=== PATIENT | male | born 1990 | race Caucasian/White ===

== ENCOUNTER 2022-02-09 08:28 | Emergency (ER) | payer SELFPAY ==
[2022-02-09 08:38] VITALS: BP 122/65; PULSE 85; RESP 16; TEMP 36.8; O2SAT 98
--- NOTE | 2022-02-09 09:11 | ED.GENADUL_ITS ---
Discharge Plan Disposition Patient Disposition: Home Condition: Stable Discharge Details Clinical Impression: Flu-like symptoms Primary Care Provider: Jennifer Parmar ED Provider: Varsha Power Home Meds and New Rx's Prescriptions: New albuterol sulfate [Proventil HFA] 90 mcg/actuation HFA aerosol inhaler 2 puff inhalation Q6H PRNQty: 6.7 0RF Discharge Instructions Additional Instructions: Take ibuprofen 600 mg every 8 hours with food Tylenol 650 mg every 4-6 hours Keep yourself hydrated You may use the albuterol inhaler, 2 puffs every 4-6 hours as needed for cough, wheeze, shortness of breath Return should you have new or worsening complaints Refer to enclosed packet information for suggestions Stand Alone Forms: Work Release Discharge Data Discharge Date/Time-TO BE ENTERED AT DEPARTURE: 02/09/22 09:44 Medical Decision Making This 31-year-old male presents with mild sweats, muscle pains, shortness of breath, and cough with runny nose for the past 2 days. Family sick with similar symptoms per patient. Patient with flulike syndrome No hypoxia, vital stable Supportive treatment recommended Return precautions reviewed and patient expressed understanding Medical Records Medical records reviewed: Yes I reviewed the patient's medical records. HPI General Date/Time Provider Initiated Documentation: 02/09/22 08:43 . HPI Narrative: This 31-year-old male presents with report of night sweats, muscle pain, shortness of breath, fatigue x2 days. Cough. Family sick with similar symptoms. Related Data Home Medications Medication Instructions Recorded Confirmed albuterol sulfate 90 mcg/actuation 2 puff inhalation Q6H PRN #6.7 02/09/22 aerosol inhaler (Proventil HFA) grams Previous Rx's Medication Instructions Recorded albuterol sulfate 90 mcg/actuation 2 puff inhalation Q6H PRN #6.7 02/09/22 aerosol inhaler (Proventil HFA) grams Allergies Allergy/AdvReac Type Severity Reaction Status Date / Time diphenhydramine Allergy Intermediate Hives Verified 02/09/22 08:41 [From Benadryl] General Stated Complaint: [facility] ESTEFANÍA: 4 Review of Systems All systems reviewed & are unremarkable except as noted in HPI and below PFSH All Active Problems (Updated 02/09/22 @ 09:15 by BRYAN Clemente) Flu-like symptoms (Acute) Bipolar 1 disorder (Acute) Family History (Updated 12/29/21 @ 16:21 by Gabby Botello) Mother Depression Father Depression Stroke Sister Depression Sister Depression Sister , 19 Depression Brother No problems noted. Son No problems noted. Son No problems noted. Social History (Updated 01/11/22 @ 12:23 by Joan Velázquez) Smoking/Tobacco Use Status: Current every day Tobacco Type: cigarettes Tobacco: How many years used: 8 Quit status: considering quitting Second Hand Exposure: Yes Smoking risk assessment performed?: Yes Alcohol Intake: current Alcohol Intake frequency: a few times a week Alcohol type: beer Drug use: Daily Substance use type: marijuana Household members: significant other and children Housing: apartment Communication Needs: None Do you need help understanding health information?: Rarely Pets and animals: Yes Pets and animals: cat(s), dog(s) and other Details: meseret Sexually active: Yes Do you think of yourself as: straight/heterosexual Current gender identity: male What is your relationship status?: living with partner How often do you talk on the phone with friends or family?: three or more times per week How often do you get together with friends or relatives?: once per week How often do you attend gnosticism or mandaeism services?: 1-3 times per year Do you belong to any clubs or organized social groups?: no Panel score (0-1 are the most socially isolated patients): 2 What type of physical activity do you participate in: weight lifting Duration: > 90 minutes/day Frequency: daily Gabrielle/Denominational: No preference Special gabrielle needs: No Seatbelt use: sometimes Helmet use: Yes Helmet use: sometimes Drive intox or ride w/intox meals on wheels driver: No Do you feel safe at home: Yes Do you feel safe in your relationship?: Yes Exam Const General: cooperative, comfortable and no acute distress Resp Effort & Inspection: normal respiratory effort Auscultation: clear to auscultation bilaterally Cardio Rate: regular rate Rhythm: regular rhythm Skin General skin exam: no rashes or lesions noted Course Vital Signs Vital signs: Vital Signs Temperature 36.8 C 02/09/22 08:38 Pulse 85 02/09/22 08:38 Respiratory Rate 16 02/09/22 08:38 Blood Pressure 122/65 02/09/22 08:38 Pulse Oximetry 98 02/09/22 08:38 Temperature 36.8 C 02/09/22 08:38 Temperature Source Skin 02/09/22 08:38 Pulse 85 02/09/22 08:38 Respiratory Rate 16 02/09/22 08:38 Respiratory Effort 02/09/22 08:41 Blood Pressure 122/65 02/09/22 08:38 Blood Pressure Position Supine 02/09/22 08:38 Pulse Oximetry 98 02/09/22 08:38 Oxygen Delivery Method Room Air 02/09/22 08:38 Oxygen Flow Rate 0 02/09/22 08:38 Pain Level 5 02/09/22 08:38 PAWSS Have you Been Recently Intoxicated or Drunk Within the Last 30 days?: Yes Have you Ever Experienced Previous Episodes of Alcohol Withdrawal?: No Have you ever Experienced Withdrawal Seizures?: No Have you ever Experienced Delirium Tremens(DT)s?: No Have you ever undergone Alcohol Rehabilitation Treatment (i.e, inpt ot outpatient treatment programs)?: No Have you ever Experienced Blackouts?: No Have you ever Combined Alcohol with other Downers within the last 90 days?: Yes Have you ever Combined Alcohol with any other Substance of Abuse during the last 90 days?: No Positive Blood Alcohol level on Presentation? [PCS.BAL]: No Evidence of Increased Autonomic Activity (i.e. HR>120, tremor, sweating, agitation, nausea)?: No Result: 1
[2022-02-09 17:15] VITALS: RESP 18
== END 2022-02-09 09:44 | disposition home or self-care (01) ==
PROVIDERS: Emergency Provider Physician Assistant; PCP Nurse Practitioner Family
DX: R05.1 Acute cough (principal); R06.02 Shortness of breath; R09.89 Other specified symptoms and signs involving the circulatory and respiratory systems; R61 Generalized hyperhidrosis; R53.83 Other fatigue
CPT/HCPCS: 99283